=== PATIENT | male | born 1980 | race Caucasian/White ===

== ENCOUNTER 2017-03-06 18:55 | Emergency (ER) | payer BC, OTHER ==
[~2017-03-06] VITALS: Ht 182.9 cm; Wt 77.0 kg
[~2017-03-06 18:55] MED LIST: CYCL5TAB PO; HYDROXYZINE HCL PO; OXYM0.0592 NAE
[2017-03-06 18:59] VITALS: Ht 182.9 cm; Wt 77.0 kg
[2017-03-06] MEDS ORDERED: FLUT0.15 NAE (19:17)
[2017-03-06] MEDS ORDERED: ATR25 PO (19:17)
[2017-03-06] MEDS ORDERED: SODIUM CHLORIDE 0.9% 1000ML 1,000 ML IV STA (19:29)
[2017-03-06 19:51] LABS: BASO % 0.3 %; BASO ABS # 0.03 K/uL (0-0.2); COMPLETE YES; EOS % 2.3 %; HEMATOCRIT 44.7 % (42-52); IG% 0.5 %; LYMPH % 33.8 %; LYMPH ABS # 2.93 K/uL (1.2-3.4); MEAN CELL VOLUME 88.5 fL (80-100); MEAN CORPUSCULAR HEMOGLOBIN 30.5 pg (25-34); MEAN CORPUSCULAR HGB CONC 34.5 g/dl (32-36); MEAN PLATELET VOLUME 10.1 fL (7.4-10.4); MONO % 8.9 %; NEUT % 54.2 %; PLATELET COUNT 316 K/uL (130-400); RED BLOOD COUNT 5.05 M/uL (4.7-6.1); WHITE BLOOD COUNT 8.66 K/uL (4.8-10.8)
--- NOTE | 2017-03-06 19:51 | DIAGNOSTIC IMAGING REPORT ---
CHEST ONE VIEW PORTABLE HISTORY: EVALUATE ALTERED MENTAL STATUS/WEAKNESS COMPARISON: None. FINDINGS: The lungs are clear. Cardiac silhouette is normal in size. No pleural effusions. No pneumothorax. Poststernotomy changes. IMPRESSION: No acute process. Electronically signed by: Kevin Talley M.D. 03/06/2017 7:50 PM Dictated Date/Time: 03/06/2017 7:49 PM
[2017-03-06 19:52] VITALS: O2SAT 100
[2017-03-06 20:10] LABS: BUN/CREATININE RATIO 12.6 (10-20); CALCIUM 9.2 mg/dl (8.5-10.1); POTASSIUM 4.1 mmol/L (3.5-5.1)
[2017-03-06 20:21] LABS: THYROID STIMULATING HORMONE 1.56 uIu/ml (0.300-4.500)
--- NOTE | 2017-03-06 20:33 | DIAGNOSTIC IMAGING REPORT ---
HEAD CT NONCONTRAST CT DOSE: 720.95 mGycm HISTORY: EVALUATE ALTERED MENTAL STATUS/WEAKNESS TECHNIQUE: Multiaxial CT images of the head were performed without the use of intravenous contrast. Automated exposure control was utilized for this study. Comparison: Head CT 03/27/2013 Findings: The paranasal sinuses and mastoid air cells are clear. The calvarium and skull base are intact. The ventricles and sulci are within normal limits. There is no mass, hematoma, midline shift, or acute infarct. Impression: No acute intracranial abnormality. Electronically signed by: Kevin Talley M.D. 03/06/2017 8:32 PM Dictated Date/Time: 03/06/2017 8:30 PM
--- NOTE | 2017-03-06 21:01 | EMERGENCY ROOM VISIT NOTE ---
History Report prepared by Monica: Digna Cornejo Under the Supervision of: Dr. Jace Bee D.O. First contact with patient: 19:25 Chief Complaint: NEURO SYMPTOMS Stated Complaint: NUMBNESS IN HANDS & TONGUE,CONFUSION,HOT FLASHES Nursing Triage Summary: Patient states, "I came home and went to go cut the grass and went on the riding mower. Before this though, my eyes went blurry and I had a headache. Then today, I my tongue and my right hand went numb. The doctors told me to come here." History of Present Illness The patient is a 36 year old male who presents to the Emergency Room with complaints of an episode of right hand and tongue numbness [employer]. The patient has been experiencing intermittent blurry vision for the past year. Recently the frequency of the blurry vision has increased from once a month to once a week. The blurry vision often leads to a headache. He had some blurry vision and a headache earlier today. One hour later, he was mowing the lawn on his riding mower when he started having numbness in his tongue, 2 front teeth, and right hand. The numbness lasted for 30 minutes. Upon arrival to the ED, he had some numbness in his left hand. He had some confusion. He reports a history of heart valve surgery and an aortic aneurysm. 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 He is currently going to physical therapy for back pain. 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 Review of Systems See HPI for pertinent positives & negatives. A total of 10 systems reviewed and were otherwise negative. Past Medical & Surgical Medical Problems: (1) Anxiety (2) Bicuspid aortic valve (3) GERD (gastroesophageal reflux disease) (4) Headache (5) Laceration of right index finger (6) Nausea (7) SBE (subacute bacterial endocarditis) prophylaxis candidate (8) Sorethroat Surgical Problems: (1) S/P AVR Family History Patient reports no known family medical history. Social History Smoking Status: Current Every Day Smoker Alcohol Use: none Marital Status: other Occupation Status: employed Current/Historical Medications Scheduled Fluticasone Propionate (Nasal) (Flonase Allergy Relief), 1 SPRAY MIROSLAVA QAM Scheduled PRN Hydroxyzine HCl (Hydroxyzine HCl), 25 MG PO DAILY PRN for Anxiety Allergies Coded Allergies: Amoxicillin (Unverified Allergy, Unknown, VOMITING, 03/06/17) Clavulanic Acid (Verified Adverse Reaction, Intermediate, vomiting., ) PER PATIENT, TAKES AMOXIL WITHOUT N/V Physical Exam Vital Signs Date Time Temp Pulse Resp B/P (MAP) Pulse Ox O2 Delivery O2 Flow Rate FiO2 03/06/17 20:00 69 03/06/17 20:00 63 18 117/76 100 Room Air 03/06/17 19:52 100 Room Air 03/06/17 18:59 36.7 72 18 129/79 100 Room Air Physical Exam VITAL SIGNS: were reviewed as above. GENERAL:Non-toxic in appearance. SKIN: Warm dry and pink. HEAD: Normocephalic and atraumatic. OROPHARYNX: Is clear and moist NECK: Supple without lymphadenopathy or meningismus. LUNGS: clear. HEART: Regular rate and rhythm. ABDOMEN: Soft and nontender. EXTREMITIES: Warm and well perfused. NEUROLOGICALLY: Awake alert and oriented without focal deficit. Cranial nerves 2 -12 are intact. There is no pronator drift. Cerebellar testing is within normal limits. There is no nystagmus. There is no facial droop. Speech is clear. Vision is grossly normal. MUSCULOSKELETAL: Good muscle tone. No evidence of trauma. Medical Decision & Procedures ER Provider Diagnostic Interpretation: X ray results and stated below per my interpretation and radiology interpretation. Radiology results as stated below per my review and radiologist interpretation: CHEST ONE VIEW PORTABLE HISTORY: EVALUATE ALTERED MENTAL STATUS/WEAKNESS COMPARISON: None. FINDINGS: The lungs are clear. Cardiac silhouette is normal in size. No pleural effusions. No pneumothorax. Poststernotomy changes. IMPRESSION: No acute process. Electronically signed by: Kevin Talley M.D. 03/06/2017 7:50 PM Dictated Date/Time: 03/06/2017 7:[address] DOSE: 720.95 mGycm HISTORY: EVALUATE ALTERED MENTAL STATUS/WEAKNESS TECHNIQUE: Multiaxial CT images of the head were performed without the use of intravenous contrast. Automated exposure control was utilized for this study. Comparison: Head CT 03/27/2013 Findings: The paranasal sinuses and mastoid air cells are clear. The calvarium and skull base are intact. The ventricles and sulci are within normal limits. There is no mass, hematoma, midline shift, or acute infarct. Impression: No acute intracranial abnormality. Electronically signed by: Kevin Talley M.D. 03/06/2017 8:32 PM Dictated Date/Time: 03/06/2017 8:30 PM Laboratory Results 03/06/17 19:42 Red Blood Count 5.05, Mean Corpuscular Volume 88.5, Mean Corpuscular Hemoglobin 30.5, Mean Corpuscular Hemoglobin Concent 34.5, Mean Platelet Volume 10.1, Neutrophils (%) (Auto) 54.2, Lymphocytes (%) (Auto) 33.8, Monocytes (%) (Auto) 8.9, Eosinophils (%) (Auto) 2.3, Basophils (%) (Auto) 0.3, Neutrophils # (Auto) 4.69, Lymphocytes # (Auto) 2.93, Monocytes # (Auto) 0.77, Eosinophils # (Auto) 0.20, Basophils # (Auto) 0.03 03/06/17 19:42 Test 03/06/17 19:42 White Blood Count 8.66 K/uL (4.8-10.8) Red Blood Count 5.05 M/uL (4.7-6.1) Hemoglobin 15.4 g/dL (14.0-18.0) Hematocrit 44.7 % (42-52) Mean Corpuscular Volume 88.5 fL (80-100) Mean Corpuscular Hemoglobin 30.5 pg (25-34) Mean Corpuscular Hemoglobin Concent 34.5 g/dl (32-36) Platelet Count 316 K/uL (130-400) Mean Platelet Volume 10.1 fL (7.4-10.4) Neutrophils (%) (Auto) 54.2 % Lymphocytes (%) (Auto) 33.8 % Monocytes (%) (Auto) 8.9 % Eosinophils (%) (Auto) 2.3 % Basophils (%) (Auto) 0.3 % Neutrophils # (Auto) 4.69 K/uL (1.4-6.5) Lymphocytes # (Auto) 2.93 K/uL (1.2-3.4) Monocytes # (Auto) 0.77 K/uL (0.11-0.59) Eosinophils # (Auto) 0.20 K/uL (0-0.5) Basophils # (Auto) 0.03 K/uL (0-0.2) RDW Standard Deviation 42.9 fL (36.4-46.3) RDW Coefficient of Variation 13.4 % (11.5-14.5) Immature Granulocyte % (Auto) 0.5 % Immature Granulocyte # (Auto) 0.04 K/uL (0.00-0.02) Anion Gap 4.0 mmol/L (3-11) Est Creatinine Clear Calc Drug Dose 112.3 ml/min Estimated GFR () 112.5 Estimated GFR (Non- 97.1 BUN/Creatinine Ratio 12.6 (10-20) Calcium Level 9.2 mg/dl (8.5-10.1) Total Bilirubin 0.6 mg/dl (0.2-1) Direct Bilirubin 0.1 mg/dl (0-0.2) Aspartate Amino Transf (AST/SGOT) 16 U/L (15-37) Alanine Aminotransferase (ALT/SGPT) 30 U/L (12-78) Alkaline Phosphatase 77 U/L (45-117) Total Protein 7.8 gm/dl (6.4-8.2) Albumin 4.5 gm/dl (3.4-5.0) Thyroid Stimulating Hormone (TSH) 1.560 uIu/ml (0.300-4.500) Laboratory results as stated above per my review. Medications Administered Medications (Trade) Dose Ordered Sig/Brit Route Start Time Stop Time Status Last Admin Dose Admin Sodium Chloride 1,000 ml @ 999 mls/hr Q1H1M STAT IV 03/06/17 19:29 03/06/17 20:29 DC 03/06/17 20:00 999 MLS/HR ECG Indication: other (numbness) Rate (beats per minute): 65 Rhythm: normal sinus Findings: no ectopy, other (no acute injury) ED Course 1924: Previous medical records were reviewed. The patient was evaluated in room B10. A complete history and physical examination was performed. 1928: NSS 1000 ml @ 999 mls/hr IV. 2107: On reevaluation, the patient is resting comfortably. I discussed the results and findings with the patient. He verbalized agreement of the treatment plan. He was discharged home. Medical Decision Differential includes acute coronary syndrome, myocardial infarction, CVA, TIA, anemia, infection, pneumonia, UTI, pyelonephritis, poor nutrition, dehydration, electrolyte disturbance,hypoglycemia. Medication Reconciliation: I attest that I have personally reviewed the patient' s current medication list. Blood pressure Screening: Patient was found to have normal blood pressure on screening and does not require follow-up. This is a 36-year-old male who presents to the ED with a chief complaint of some blurring of his eyes followed by headache earlier today. He states that he has been having this more frequently. He has had over the past few years but it has been occurring weekly over the past 2 weeks. The patient also reports an hour later that his tongue and his 2 front teeth felt numb and his right hand felt numb. This lasted for about 30 minutes as did the initial blurring of the vision. The patient was advised to come in by his PCP. His vital signs are normal. His neurologic exam is completely normal. His physical exam was normal. Vital signs are stable. His chest x-ray did not show acute disease. A CT scan of the brain did not show acute disease. CBC and complete metabolic panel normal. TSH was normal. EKG shows a normal sinus rhythm at a rate of 65. The vision was told results the test. He is felt to be stable for discharge and outpatient follow-up. Impression Primary Impression: Paresthesia Additional Impressions: Headache Vision blurred Scribe Attestation The scribe's documentation has been prepared under my direction and personally reviewed by me in its entirety. I confirm that the note above accurately reflects all work, treatment, procedures, and medical decision making performed by me. Departure Information Dispostion Home / Self-Care Referrals Delano Maldonado M.D. (MEDICAL) (PCP) Patient Instructions My [facility] Additional Instructions Follow-up with your doctor for further care and evaluation in 1-2 days. Return to the emergency department for worsening or new symptoms or any concerns. You have been examined and treated today on an emergency basis only. This is not a substitute for, or an effort to provide, complete comprehensive medical care. It is impossible to recognize and treat all injuries or illnesses in a single emergency department visit. It is therefore important that you follow up closely with your doctor. Call as soon as possible for an appointment. Problem Qualifiers
[2017-03-06 21:41] VITALS: BP 109/75; PULSE 65; TEMP 36.7; O2SAT 100
== END 2017-03-06 21:41 | disposition home or self-care (01) ==
LOC: C.EDB 18:58
DX: R20.2 Paresthesia of skin (principal); R51 Headache; H53.8 Other visual disturbances; K21.9 Gastro-esophageal reflux disease without esophagitis; I35.8 Other nonrheumatic aortic valve disorders; F17.200 Nicotine dependence, unspecified, uncomplicated; Z88.1 Allergy status to other antibiotic agents; Z88.8 Allergy status to other drugs, medicaments and biological substances